=== PATIENT | female | born 1990 | race Caucasian/White ===

== ENCOUNTER 2017-05-23 17:38 | Emergency (ER) | payer BC ==
[~2017-05-23] VITALS: Ht 165.1 cm; Wt 90.3 kg
[~2017-05-23 17:38] MED LIST: ALPR0.254 PO; BUTA1CAP57 PO; CITA20TA9 PO
[2017-05-23 17:49] VITALS: BP 132/91
[2017-05-23] MEDS ORDERED: DEXAMETHASONE 4 MG TABLET PO STA (18:37)
[2017-05-23] MEDS ORDERED: DEXAMETHASONE 4 MG TABLET ONE (18:39)
== END 2017-05-23 18:44 | disposition home or self-care (01) ==
LOC: ED 18:37
DX: J02.8 Acute pharyngitis due to other specified organisms (principal); I88.8 Other nonspecific lymphadenitis; H92.02 Otalgia, left ear
CPT/HCPCS: 99283